=== PATIENT | female | born 1955 | race Caucasian/White ===

== ENCOUNTER 2016-11-06 11:25 | Emergency (ER) | payer SELFPAY ==
[~2016-11-06 11:25] MED LIST: Magnesium Chloride 64 MG TAB ONE
[2016-11-06] MEDS ORDERED: Ibuprofen 200 MG TAB ONE (12:01)
[2016-11-06] MEDS ORDERED: Acetaminophen 500 MG TAB ONE (12:01)
--- NOTE | 2016-11-06 12:30 | RAD ---
PORTABLE CHEST 1 VIEW: Date: 11/06/16 Time: 1203 hours HISTORY: Palpitations, headache, hypertension. FINDINGS: Comparison made with exam of 11/27/15. The heart size is borderline. No confluent areas of consolidation, pneumothorax, hermilo pulmonary ivett ma, or pleural effusions are seen. Mild chronic changes are stable. IMPRESSION: No acute process. POS: [id number]
[2016-11-06 12:34] LABS: ALT (SGPT) 13 U/L (0-55); AST (SGOT) 12 U/L (5-34); Alkaline Phosphatase 130 U/L (40-150); Anion Gap 17 mmol/L (10-20); BUN (Urea Nitrogen) 17 mg/dL (9.8-20.1); Bilirubin, Total 0.6 mg/dL (0.2-1.2); Calc. Creatinine Clearance 0 mL/min (70-130); Calcium 9.7 mg/dL (7.8-10.44); Carbon Dioxide 25 mmol/L (23-31); Chloride 94 mmol/L (98-107); Estimated GFR-MDRD 42; Globulin 3.1 g/dL (2.4-3.5); Magnesium 1.5 mg/dL (1.6-2.6); Protein, Total 7.1 g/dL (5.8-8.1)
[2016-11-06 12:50] LABS: #Basophils 0.1 thou/uL (0.0-0.2); #Eosinphils 0.2 thou/uL (0.0-0.7); #Lymphocytes 1.2 thou/uL (1.20-3.40); #Monocytes 0.4 thou/uL (0.11-0.59); #Neutrophils 4.4 thou/uL (1.40-6.50); %Basophils 1.3 % (0.0-1.0); %Eosinophils 2.6 % (0.0-10.0); %Lymphocytes 19.4 % (21.0-51.0); %Monocytes 6.8 % (0.0-10.0); Mean Platelet Volume 6.2 fL (7.4-10.4); Red Blood Cell (RBC) Count 4.11 mill/uL (4.20-5.40); White Blood Cell (WBC) Count 6.3 thou/uL (4.8-10.8)
== END 2016-11-06 13:27 | disposition home or self-care (01) ==
LOC: NAV ERS 11:25
DX: R51 Headache (principal); J42 Unspecified chronic bronchitis; I10 Essential (primary) hypertension; E83.42 Hypomagnesemia; R00.2 Palpitations; F17.210 Nicotine dependence, cigarettes, uncomplicated; Z79.899 Other long term (current) drug therapy
CPT/HCPCS: 36415; 71010; 80053; 82553; 83735; 84443; 84484; 85025; 85652; 86140; 93005

== ENCOUNTER 2017-04-14 15:23 | Emergency (ER) | payer SELFPAY ==
[2017-04-14] MEDS ORDERED: Ondansetron ODT 4 MG TAB ONE (15:44)
[2017-04-14 15:50] LABS: Blood, Urine Negative (Negative); Glucose, Urine (Dipstick) Negative (Negative); Leukocyte Trace (Negative); Nitrite Positive (Negative); Protein, Urine (Dipstick) 100 mg/dL (Neg-Trace); Specific Gravity, Urine 1.025 (1.005-1.030); pH, Urine 5.5 (5.0-9.0)
[2017-04-14 15:51] LABS: Bilirubin Negative (Negative); Clarity Hazy (Clear); Icto Negative (Negative)
[2017-04-14 15:52] LABS: Bacteria/HPF 1+ HPF (None Seen); RBC/HPF 0-3 HPF (0-3); Squamous Epithelial 21-50 HPF (0-3)
[2017-04-14] MEDS ORDERED: Cipro 250 MG TAB ONE (16:06)
== END 2017-04-14 16:17 | disposition home or self-care (01) ==
LOC: NAV ERS 15:23
DX: N39.0 Urinary tract infection, site not specified (principal); I10 Essential (primary) hypertension; F17.210 Nicotine dependence, cigarettes, uncomplicated
CPT/HCPCS: 81003; 81015; 87077; 87086; 87186; 99284; Q0162

== ENCOUNTER 2017-06-01 13:16 | Emergency (ER) | payer SELFPAY ==
[2017-06-01] MEDS ORDERED: NIFEdipine XL 30 MG TAB ONE (13:57)
== END 2017-06-01 14:20 | disposition home or self-care (01) ==
LOC: NAV ERS 13:16
DX: G93.2 Benign intracranial hypertension (principal); J18.0 Bronchopneumonia, unspecified organism; J44.1 Chronic obstructive pulmonary disease with (acute) exacerbation; I10 Essential (primary) hypertension; F17.210 Nicotine dependence, cigarettes, uncomplicated; Z79.899 Other long term (current) drug therapy
CPT/HCPCS: 99283

== ENCOUNTER 2017-12-06 13:48 | Emergency (ER) | payer SELFPAY | END 2017-12-06 14:14 | disposition home or self-care (01) | LOC: NAV ERS 13:48 | DX: I10 Essential (primary) hypertension (principal); F17.210 Nicotine dependence, cigarettes, uncomplicated; Z79.899 Other long term (current) drug therapy | CPT/HCPCS: 99406 ==

== ENCOUNTER 2018-01-02 15:05 | Emergency (ER) | payer MEDICARE | END 2018-01-02 15:50 | disposition home or self-care (01) | LOC: NAV ERS 15:05 | DX: I10 Essential (primary) hypertension (principal); Z76.0 Encounter for issue of repeat prescription; F17.210 Nicotine dependence, cigarettes, uncomplicated; Z79.899 Other long term (current) drug therapy | CPT/HCPCS: 93005 ==